=== PATIENT | male | born 1970 | race African-American/Black ===

== ENCOUNTER 2017-10-27 20:01 | Emergency (ER) | payer MEDICAID, OTHER ==
[~2017-10-27] VITALS: Ht 170.2 cm; Wt 119.3 kg
[2017-10-27 20:12] VITALS: BP_SYST 158
--- NOTE | 2017-10-27 20:12 | NUR ---
Patient AAO x4, vital signs stable, md notified of patient condition. No beds available at this time, patient okayed by md for waiting room placement at this time. No acute distress noted. Will continue to monitor.
--- NOTE | 2017-10-27 20:30 | NUR ---
Patient called for bed placement, not found in ED waiting room or outside ED.
--- NOTE | 2017-10-27 20:40 | NUR ---
Patient called for bed placement no answer, patient not found in ED.
--- NOTE | 2017-10-27 20:45 | NUR ---
Patient called three times, not found in ED waiting room for bed placement. Patient LWBS. notified.
== END 2017-10-27 20:45 | disposition left against medical advice (07) ==
LOC: SED 20:01
DX: R10.9 Unspecified abdominal pain (principal); Z88.5 Allergy status to narcotic agent; Z88.8 Allergy status to other drugs, medicaments and biological substances; Z53.21 Procedure and treatment not carried out due to patient leaving prior to being seen by health care provider